=== PATIENT | female | born 1995 | race Two or more races ===

== ENCOUNTER 2018-06-09 00:02 | Emergency (ER) | payer OTHER ==
[~2018-06-09] VITALS: Ht 167.6 cm; Wt 74.8 kg
[2018-06-09 00:20] VITALS: BP 105/70
[2018-06-09] MEDS ORDERED: HYDROcodone-ACET 10/325MG TAB PO ONE (03:00)
[2018-06-09] MEDS ORDERED: IBUPROFEN 600 MG TAB PO ONE (03:00)
== END 2018-06-09 04:06 | disposition home or self-care (01) ==
LOC: ER 00:06
DX: S62.306A Unspecified fracture of fifth metacarpal bone, right hand, initial encounter for closed fracture (principal); W19.XXXA Unspecified fall, initial encounter; Y93.89 Activity, other specified; Y99.8 Other external cause status; Y92.89 Other specified places as the place of occurrence of the external cause
CPT/HCPCS: 29125; 73110; 73130

== ENCOUNTER 2020-07-03 10:49 | Observation (INO) | payer OTHER ==
[~2020-07-03] VITALS: Ht 167.6 cm; Wt 83.9 kg
[2020-07-04] MEDS ORDERED: PREN1CAP20 PO (01:19)
== END 2020-07-04 01:49 | disposition home or self-care (01) ==
LOC: LDRP 10:49
PROVIDERS: ADMIT Obstetrics & Gynecology; ATTEND Obstetrics & Gynecology
DX: O40.3XX0 Polyhydramnios, third trimester, not applicable or unspecified (principal); O36.8130 Decreased fetal movements, third trimester, not applicable or unspecified; O99.891 Other specified diseases and conditions complicating pregnancy; M54.9 Dorsalgia, unspecified; Z3A.36 36 weeks gestation of pregnancy
CPT/HCPCS: 59025; 76818; 81002; 82962; G0378